=== PATIENT | male | born 1955 | race Hispanic/Latino ===

== ENCOUNTER → 2019-06-17 | Day surgery (SDC) | payer OTHER ==
[2019-06-15 12:30] LABS: BASOPHILS % 0.4 % (0.0-1.0); EOSINOPHILS % 0.4 % (0.0-6.0); HEMATOCRIT 38.8 % (38.2-49.6); HEMOGLOBIN 13.3 g/dL (14.0-18.0); LYMPHOCYTES # (AUTO) 1.3 (1.0-3.2); LYMPHOCYTES % 16.9 % (18.0-39.1); MEAN CORPUSCULAR HEMOGLOBIN 30.2 pg (28-32); MEAN CORPUSCULAR HGB CONC 34.3 g/dL (31-35); MEAN CORPUSCULAR VOLUME 88.2 fL (81-99); MONOCYTES # (AUTO) 0.5 (0.2-0.8); MONOCYTES % 6.6 % (4.4-11.3); NEUTROPHILS # (AUTO) 5.5 (2.1-6.9); NEUTROPHILS % 75.2 % (38.7-80.0); PLATELET COUNT 209 x10e3/uL (140-360); RED CELL DISTRIBUTION WIDTH 12.8 % (11.7-14.4)
[2019-06-15 12:49] LABS: ALANINE AMINOTRANSFERASE 17 IU/L (0-55); ALBUMIN 4.2 g/dL (3.5-5.0); ALBUMIN/GLOBULIN RATIO 1.4 (0.8-2.0); ALKALINE PHOSPHATASE 94 IU/L (40-150); ANION GAP 14.3 mmol/L (8-16); BLOOD UREA NITROGEN 11 mg/dL (7-26); BUN/CREATININE RATIO 14 (6-25); CALCIUM 9.5 mg/dL (8.4-10.2); CARBON DIOXIDE 26 mmol/L (22-29); CHLORIDE 98 mmol/L (98-107); CREATININE, SERUM 0.79 mg/dL (0.72-1.25); EST GLOMERULAR FILTRATION RATE > 60 ML/MIN (60-); GLUCOSE 147 mg/dL (74-118); POTASSIUM 4.3 mmol/L (3.5-5.1); SODIUM 134 mmol/L (136-145)
[~2019-06-17] MED LIST: ATORVASTATIN CA20 MG PO; BUPIVACAINE 0.25%/EPI 30ML SDV INJ ONE; DEXAMETHASONE SOD PHOS INJ 4 MG/ML VIAL ONE; FENTANYL CITRATE/PF 100MCG/2 ML INJ ONE; KETOROLAC TROMETHAMINE 30 MG/ML VIAL ONE; LIDOCAINE HCL 1% LOCAL INJ 20 ML VIAL ONE; LIDOCAINE HCL 2% LOCAL INJ 5 ML SDV VIAL INJ ONE; METFORMIN HCL500 MG PO; MIDAZOLAM HCL 2 MG/2 ML VIAL ONE; ONDANSETRON HCL INJ 2MG/ML 2ML 2 MG/ML VIAL ONE; PROPOFOL IV EMULSION 10 MG/ML 20 ML VIAL ONE; SEVOFLURANE INHAL SOLN 250 ML PEN BTL ONE
[2019-06-17 12:10] VITALS: BP 131/80
--- NOTE | 2019-06-17 13:26 | Operative Report ---
DATE OF PROCEDURE: 06/17/2019 SURGEON: Jeffrey Manjarrez MD PREOPERATIVE DIAGNOSIS: Left inguinal hernia. POSTOPERATIVE DIAGNOSIS: Left inguinal hernia. OPERATION PERFORMED: Repair of left inguinal hernia with extended Prolene hernia system. ANESTHESIA: General. COMPLICATIONS: None. ESTIMATED BLOOD LOSS: Minimal. DESCRIPTION OF PROCEDURE: With the patient lying in bed in the supine position, under good general anesthesia, the abdomen was prepped with Betadine solution and draped in the usual manner. A left inguinal incision was made, it was carried down through the subcutaneous tissue down to the external oblique aponeurosis. External oblique was then opened along the length of its fibers and the external inguinal ring was opened. The cord was then mobilized and retracted. Contained within the cord was a small lipoma of the cord, which was from the cord structures ligated with 2-0 Vicryl and divided. Also, contained within the cord was a large indirect hernia sac, which contained some omentum. The omentum was reduced back to the intraabdominal cavity and the sac was then from all of the cord structures and high ligation was achieved with a pursestring suture of 2-0 silk and a 2-0 silk tie. The excess was resected. After this was done, the preperitoneal space was entered right through the internal ring and a pocket was created without any difficulty. An extended Prolene hernia system was placed in the preperitoneal space and the underlay patch was deployed without any problems. The overlay patch was then placed over the floor and split inferolaterally to allow for passage of the cord. The mesh was then sutured to the conjoined tendon and the inguinal ligament using interrupted sutures of 0 Vicryl. The whole area was thoroughly irrigated. Perfect hemostasis was ascertained. All layers were infiltrated on the way out with solution of 0.25% Marcaine and 1% lidocaine mixed in equal parts. The external oblique aponeurosis was closed with a running suture of 2-0 Vicryl. The subcutaneous tissue was approximated with 3-0 plain and the skin was closed with clips. A dressing was applied. The sponge, lap, and needle counts were correct. The patient tolerated the procedure well and returned to the recovery room in stable condition. Jeffrey Manjarrez MD JLR/NAKIA Monroe: 06/17/2019 11:22:35 /[id number]
== END | disposition home or self-care (01) ==
LOC: OR 05:51
PROVIDERS: ATTEND Surgery
DX: K40.90 Unilateral inguinal hernia, without obstruction or gangrene, not specified as recurrent (principal); D17.6 Benign lipomatous neoplasm of spermatic cord; E11.9 Type 2 diabetes mellitus without complications; I10 Essential (primary) hypertension; Z01.810 Encounter for preprocedural cardiovascular examination; Z01.812 Encounter for preprocedural laboratory examination; Z79.84 Long term (current) use of oral hypoglycemic drugs
CPT/HCPCS: 36415 ×2; 49505; 80053; 82948; 85025; 93005; C1781; J1100; J1885; J2001 ×2; J2250; J2405; J2704; J3010

== ENCOUNTER → 2021-10-03 | Outpatient (CLI) | payer MEDICARE, OTHER ==
[~2021-10-03] MED LIST changes: -BUPIVACAINE 0.25%/EPI 30ML SDV INJ ONE; -DEXAMETHASONE SOD PHOS INJ 4 MG/ML VIAL ONE; +DIATRIZOATE MEGL/DIATRIZOA SOD 30 ML BTL PO ONE; -FENTANYL CITRATE/PF 100MCG/2 ML INJ ONE; +IOPAMIDOL 370 MG/ML 200 ML INFUS..BTL INJ ONE; -KETOROLAC TROMETHAMINE 30 MG/ML VIAL ONE; -LIDOCAINE HCL 1% LOCAL INJ 20 ML VIAL ONE; -LIDOCAINE HCL 2% LOCAL INJ 5 ML SDV VIAL INJ ONE; -MIDAZOLAM HCL 2 MG/2 ML VIAL ONE; -ONDANSETRON HCL INJ 2MG/ML 2ML 2 MG/ML VIAL ONE; -PROPOFOL IV EMULSION 10 MG/ML 20 ML VIAL ONE; -SEVOFLURANE INHAL SOLN 250 ML PEN BTL ONE; +SODIUM CHLORIDE 0.9% 50ML 50 ML ONE
[2021-10-03 08:09] LABS: BASOPHILS % 0.2 % (0.0-1.0); EOSINOPHILS % 0.1 % (0.0-6.0); HEMATOCRIT 27.8 % (38.2-49.6); HEMOGLOBIN 8.4 g/dL (14.0-18.0); LYMPHOCYTES # (AUTO) 0.9 (1.0-3.2); LYMPHOCYTES % 7.6 % (18.0-39.1); MEAN CORPUSCULAR HEMOGLOBIN 23.2 pg (28-32); MEAN CORPUSCULAR HGB CONC 30.2 g/dL (31-35); MEAN CORPUSCULAR VOLUME 76.8 fL (81-99); MONOCYTES % 8.7 % (4.4-11.3); NEUTROPHILS # (AUTO) 9.5 (2.1-6.9); NEUTROPHILS % 82.9 % (38.7-80.0); PLATELET COUNT 470 x10e3/uL (140-360); RED BLOOD COUNT 3.62 x10e6/uL (4.3-5.7); RED CELL DISTRIBUTION WIDTH 14.7 % (11.7-14.4)
[2021-10-03 08:55] LABS: ALBUMIN 2.5 g/dL (3.5-5.0); ALBUMIN/GLOBULIN RATIO 0.5 (0.8-2.0); ANION GAP 16.1 mmol/L (8-16); CALCIUM 9.6 mg/dL (8.4-10.2); CREATININE, SERUM 0.75 mg/dL (0.72-1.25); POTASSIUM 4.1 mmol/L (3.5-5.1)
== END ==
LOC: CT 07:25
PROVIDERS: ATTEND Surgery
DX: R10.32 Left lower quadrant pain (principal); D64.9 Anemia, unspecified; R63.4 Abnormal weight loss
CPT/HCPCS: 36415; 71046; 74177; 80053; 85025; Q9967

== ENCOUNTER 2021-12-15 12:21 | Inpatient (IN) | payer MEDICARE, OTHER ==
[~2021-12-15] VITALS: Ht 157.5 cm; Wt 69.5 kg
[~2021-12-15 12:21] MED LIST changes: -DIATRIZOATE MEGL/DIATRIZOA SOD 30 ML BTL PO ONE; -IOPAMIDOL 370 MG/ML 200 ML INFUS..BTL INJ ONE; -SODIUM CHLORIDE 0.9% 50ML 50 ML ONE
[2021-12-15] MEDS ORDERED: DEXTROSE 50% SYRINGE 50 ML IV ONE ×2 (12:43→12:45)
[2021-12-15 13:16] LABS: HEMATOCRIT 23.8 % (38.2-49.6); HEMOGLOBIN 7.4 g/dL (14.0-18.0); LYMPHOCYTES # (AUTO) 0.5 (1.0-3.2); LYMPHOCYTES % 6.3 % (18.0-39.1); MEAN CORPUSCULAR HEMOGLOBIN 27.3 pg (28-32); MEAN CORPUSCULAR HGB CONC 31.1 g/dL (31-35); MEAN CORPUSCULAR VOLUME 87.8 fL (81-99); MONOCYTES # (AUTO) 0.1 (0.2-0.8); MONOCYTES % 1.8 % (4.4-11.3); NEUTROPHILS # (AUTO) 7.2 (2.1-6.9); NEUTROPHILS % 91.1 % (38.7-80.0); RED BLOOD COUNT 2.71 x10e6/uL (4.3-5.7); RED CELL DISTRIBUTION WIDTH 25.1 % (11.7-14.4)
[2021-12-15 13:21] LABS: PLATELET COUNT 6 x10e3/uL (140-360)
[2021-12-15 13:32] LABS: ALBUMIN 1.5 g/dL (3.5-5.0); ALBUMIN/GLOBULIN RATIO 0.4 (0.8-2.0); ANION GAP 9.3 mmol/L (8-16); CALCIUM 7.2 mg/dL (8.4-10.2); CREATININE, SERUM 0.86 mg/dL (0.72-1.25); POTASSIUM 4.3 mmol/L (3.5-5.1)
[2021-12-15] MEDS ORDERED: ONDANSETRON HCL INJ 2MG/ML 2ML 2 MG/ML VIAL IV PRN (14:30)
[2021-12-15] MEDS ORDERED: SODIUM CHLORIDE 0.9% 250ML 250 ML ONE (17:55)
[2021-12-15 18:01] VITALS: BP 127/78
[2021-12-15] MEDS ORDERED: ZINC-22050 MG PO (18:17)
[2021-12-15] MEDS ORDERED: LEVOTHYROXINE50 MCG PO (18:17)
[2021-12-15] MEDS ORDERED: LASIX20 MG PO (18:17)
[2021-12-15] MEDS ORDERED: POTASSIUM CHLO10 ME1 PO (18:17)
[2021-12-15] MEDS ORDERED: SODIUM CHLORIDE1 GM PO (18:17)
[2021-12-15] MEDS ORDERED: ZESTRIL40 MG PO (18:17)
[2021-12-15] MEDS ORDERED: ACTOS15 MG PO (18:17)
[2021-12-15 18:32] VITALS: BP 106/80
[2021-12-15 19:00] VITALS: BP 110/73
[2021-12-15 20:00] VITALS: BP 118/82
[2021-12-15] MEDS: DEXTROSE 50% SYRINGE 50 ML IV PRN (20:16)
[2021-12-15 21:00] VITALS: BP 141/92
[2021-12-15 21:30] VITALS: BP 144/79
[2021-12-15] MEDS ORDERED: DEXAMETHASONE PHOS 4MG/ML 5ML MULTIDOSE VIAL IV ONE (23:45)
[2021-12-16] VITALS (38 sets, daily range): BP systolic 90–142; BP diastolic 70–88
[2021-12-16] MEDS ORDERED: DEXAMETHASONE SOD PHOS 10 MG/1 ML VIAL ONE (00:13)
[2021-12-16] MEDS: DEXTROSE 50% SYRINGE 50 ML IV PRN (00:48)
[2021-12-16 08:14] LABS: ANION GAP 11.6 mmol/L (8-16); CREATININE, SERUM 0.77 mg/dL (0.72-1.25); POTASSIUM 4.6 mmol/L (3.5-5.1)
[2021-12-16 08:25] LABS: CALCIUM 6.5 mg/dL (8.4-10.2)
[2021-12-16 10:40] LABS: HEMATOCRIT 23.8 % (38.2-49.6); HEMOGLOBIN 7.5 g/dL (14.0-18.0); LYMPHOCYTES # (AUTO) 0.3 (1.0-3.2); LYMPHOCYTES % 4.7 % (18.0-39.1); MEAN CORPUSCULAR HGB CONC 31.5 g/dL (31-35); MEAN CORPUSCULAR VOLUME 88.8 fL (81-99); MONOCYTES # (AUTO) 0.1 (0.2-0.8); MONOCYTES % 1.5 % (4.4-11.3); NEUTROPHILS # (AUTO) 5.1 (2.1-6.9); NEUTROPHILS % 92.5 % (38.7-80.0); RED BLOOD COUNT 2.68 x10e6/uL (4.3-5.7)
[2021-12-16 10:51] LABS: PLATELET COUNT 6 x10e3/uL (140-360)
[2021-12-16 10:53] LABS: INR 2.29; PROTHROMBIN TIME 26.9 seconds (11.9-14.5)
[2021-12-16 10:54] LABS: PARTIAL THROMBOPLASTIN TIME 47.4 seconds (23.8-35.5)
[2021-12-16 11:05] LABS: ANION GAP 13.5 mmol/L (8-16); CREATININE, SERUM 0.75 mg/dL (0.72-1.25); POTASSIUM 4.5 mmol/L (3.5-5.1)
[2021-12-16 11:06] LABS: CHOL/HDL RATIO 2.6 (3.9-4.7)
[2021-12-16 11:10] LABS: CALCIUM 6.8 mg/dL (8.4-10.2)
[2021-12-16 11:12] LABS: ANISOCYTOSIS SLIGHT; PLATELET ESTIMATE MARKEDLY DECREASED; PLATELET MORPHOLOGY COMMENT NORMAL; POIKILOCYTOSIS SLIGHT; RBC MORPHOLOGY COMMENT NORMAL
[2021-12-16 11:41] LABS: ALBUMIN 1.6 g/dL (3.5-5.0); ALBUMIN/GLOBULIN RATIO 0.5 (0.8-2.0); ANION GAP 13.9 mmol/L (8-16); CREATININE, SERUM 0.75 mg/dL (0.72-1.25); POTASSIUM 4.9 mmol/L (3.5-5.1)
[2021-12-16 11:52] LABS: IRON 85 ug/dL (65-175); LACTATE DEHYDROGENASE 659 IU/L (125-220); TRANSFERRIN < 70 mg/dL (174-364)
[2021-12-16 11:58] LABS: CALCIUM 6.7 mg/dL (8.4-10.2)
[2021-12-16] MEDS: LISINOPRIL 20 MG TAB PO SCH (12:23)
[2021-12-16] MEDS ORDERED: SODIUM CHLORIDE 0.9% 500ML 500 ML ONE (12:31)
[2021-12-16] MEDS: FUROSEMIDE INJ 10 MG/ML 2 ML VIAL IV SCH ×2 (12:40→17:33)
[2021-12-16 12:48] LABS: FERRITIN 4145.01 ng/mL (21.81-274.66)
[2021-12-16] MEDS: SODIUM CHLORIDE 1 GM TAB PO SCH (17:33)
[2021-12-16 17:41] LABS: CLARITY,URINE SL CLOUDY (CLEAR); COLOR,URINE YELLOW (YELLOW); KETONES,URINE NEGATIVE (NEGATIVE); LEUKOCYTE ESTERASE ,URINE TRACE (NEGATIVE); NITRITE,URINE NEGATIVE (NEGATIVE); PROTEIN,URINE DIPSTICK TRACE (NEGATIVE); URINE UROBILINOGEN 0.2 mg/dL (0.2 - 1)
[2021-12-16 17:55] LABS: RBC,URINE 0-5 /HPF (0-5); WBC,URINE (MAN) 0-5 /HPF (0-5)
[2021-12-16 17:56] LABS: BACTERIA,URINE MODERATE /HPF; EPITHELIAL CELLS,URINE FEW /LPF
[2021-12-16 20:29] LABS: LYMPHOCYTES # (AUTO) 0.4 (1.0-3.2); LYMPHOCYTES % 5.6 % (18.0-39.1); MEAN CORPUSCULAR HGB CONC 31.3 g/dL (31-35); MEAN CORPUSCULAR VOLUME 89.3 fL (81-99); MONOCYTES # (AUTO) 0.2 (0.2-0.8); NEUTROPHILS # (AUTO) 6.8 (2.1-6.9); NEUTROPHILS % 91.1 % (38.7-80.0); RED BLOOD COUNT 2.25 x10e6/uL (4.3-5.7); RED CELL DISTRIBUTION WIDTH 25.2 % (11.7-14.4)
[2021-12-16 20:32] LABS: HEMATOCRIT 20.1 % (38.2-49.6); HEMOGLOBIN 6.3 g/dL (14.0-18.0)
[2021-12-16 20:33] LABS: PLATELET COUNT 10 x10e3/uL (140-360)
[2021-12-16] MEDS ORDERED: SODIUM CHLORIDE 0.9% 250ML 250 ML IV ONE (21:00)
[2021-12-16] MEDS ORDERED: SODIUM CHLORIDE 0.9% 250ML 250 ML ONE (22:21)
[2021-12-17] VITALS (38 sets, daily range): BP systolic 87–127; BP diastolic 63–87
[2021-12-17] MEDS ORDERED: SODIUM CHLORIDE 0.9% IV NR ×2
[2021-12-17] MEDS ORDERED: DEXAMETHASONE PHOS 4MG/ML 5ML MULTIDOSE VIAL IV ONE
[2021-12-17] MEDS ORDERED: DEXAMETHASONE PHOS IV NR ×2
[2021-12-17 05:33] LABS: BASOPHILS % 0.1 % (0.0-1.0); HEMATOCRIT 27.2 % (38.2-49.6); HEMOGLOBIN 8.9 g/dL (14.0-18.0); LYMPHOCYTES # (AUTO) 0.3 (1.0-3.2); LYMPHOCYTES % 3.9 % (18.0-39.1); MEAN CORPUSCULAR HEMOGLOBIN 28.8 pg (28-32); MEAN CORPUSCULAR HGB CONC 32.7 g/dL (31-35); MONOCYTES # (AUTO) 0.2 (0.2-0.8); MONOCYTES % 2.4 % (4.4-11.3); NEUTROPHILS # (AUTO) 6.1 (2.1-6.9); NEUTROPHILS % 90.5 % (38.7-80.0); RED BLOOD COUNT 3.09 x10e6/uL (4.3-5.7)
[2021-12-17 05:37] LABS: PLATELET COUNT 17 x10e3/uL (140-360)
[2021-12-17 05:50] LABS: ALBUMIN 1.4 g/dL (3.5-5.0); ALBUMIN/GLOBULIN RATIO 0.5 (0.8-2.0); ANION GAP 11.6 mmol/L (8-16); CREATININE, SERUM 0.78 mg/dL (0.72-1.25); POTASSIUM 4.6 mmol/L (3.5-5.1)
[2021-12-17 05:51] LABS: CALCIUM 6.8 mg/dL (8.4-10.2)
[2021-12-17] MEDS: LEVOTHYROXINE SODIUM 50 MCG TAB PO SCH (06:17)
[2021-12-17 07:07] LABS: BAND NEUTROPHILS % (MANUAL) 1 %; LYMPHOCYTES % (MANUAL) 4 % (19-48); METAMYELOCYTES % (MANUAL) 1 % (0-0); MONOCYTES % (MANUAL) 4 % (3.4-9.0); NEUTROPHILS % (MANUAL) 90 % (40-74)
[2021-12-17 07:08] LABS: ANISOCYTOSIS 2+
[2021-12-17 07:09] LABS: BURR CELLS 2+; OVALOCYTES 1+; POLYCHROMASIA MODERATE; SCHISTOCYTES 1+; TARGET CELLS OCC
[2021-12-17 07:10] LABS: PLATELET ESTIMATE MARKEDLY DECREASED; PLATELET MORPHOLOGY COMMENT NORMAL; RBC MORPHOLOGY COMMENT ABNORMAL
[2021-12-17] MEDS: FUROSEMIDE INJ 10 MG/ML 2 ML VIAL IV SCH ×4 (09:00→18:35)
[2021-12-17] MEDS ORDERED: FUROSEMIDE 20 MG TAB PO SCH (09:00)
[2021-12-17] MEDS: CEFTRIAXONE 1 GM in SODIUM CHLORIDE 0.9% 50ML 50 ML IV SCH (10:33)
[2021-12-17] MEDS: SODIUM CHLORIDE 1 GM TAB PO SCH ×2 (10:35→17:30)
[2021-12-17] MEDS ORDERED: SODIUM CHLORIDE 0.9% 50ML 50 ML ONE (10:54)
[2021-12-17] MEDS ORDERED: SODIUM CHLORIDE 0.9% 250ML 500 ML ONE (12:51)
[2021-12-17] MEDS: LISINOPRIL 20 MG TAB PO SCH (16:04)
[2021-12-17 17:32] LABS: INR 2.21; PROTHROMBIN TIME 26.2 seconds (11.9-14.5)
[2021-12-18] VITALS (20 sets, daily range): BP systolic 75–110; BP diastolic 57–87
[2021-12-18] MEDS ORDERED: DEXAMETHASONE PHOS 4MG/ML 5ML MULTIDOSE VIAL IV ONE
[2021-12-18] MEDS ORDERED: SODIUM CHLORIDE 0.9% IV ONE ×2
[2021-12-18] MEDS ORDERED: DEXAMETHASONE PHOS IV ONE ×2
[2021-12-18] MEDS: FUROSEMIDE INJ 10 MG/ML 2 ML VIAL IV SCH ×4 (05:30→22:03)
[2021-12-18 05:54] LABS: BASOPHILS % 0.3 % (0.0-1.0); HEMATOCRIT 26.3 % (38.2-49.6); HEMOGLOBIN 8.7 g/dL (14.0-18.0); LYMPHOCYTES # (AUTO) 0.2 (1.0-3.2); MEAN CORPUSCULAR HGB CONC 33.1 g/dL (31-35); MEAN CORPUSCULAR VOLUME 87.7 fL (81-99); MONOCYTES # (AUTO) 0.2 (0.2-0.8); MONOCYTES % 1.5 % (4.4-11.3); NEUTROPHILS # (AUTO) 10.4 (2.1-6.9); NEUTROPHILS % 94.8 % (38.7-80.0); RED CELL DISTRIBUTION WIDTH 22.8 % (11.7-14.4)
[2021-12-18 05:56] LABS: PLATELET COUNT 6 x10e3/uL (140-360)
[2021-12-18 06:19] LABS: ALBUMIN 1.4 g/dL (3.5-5.0); ALBUMIN/GLOBULIN RATIO 0.5 (0.8-2.0); ANION GAP 9.3 mmol/L (8-16); CALCIUM 7.3 mg/dL (8.4-10.2); CREATININE, SERUM 0.81 mg/dL (0.72-1.25); POTASSIUM 4.3 mmol/L (3.5-5.1)
[2021-12-18] MEDS: LEVOTHYROXINE SODIUM 50 MCG TAB PO SCH (06:27)
[2021-12-18 09:00] LABS: INR 2.03; PROTHROMBIN TIME 24.5 seconds (11.9-14.5)
[2021-12-18] MEDS ORDERED: PHYTONADIONE 10 MG/ML AMP SQ ONE (09:00)
[2021-12-18 09:01] LABS: PARTIAL THROMBOPLASTIN TIME 42.2 seconds (23.8-35.5)
[2021-12-18] MEDS: CEFTRIAXONE 1 GM in SODIUM CHLORIDE 0.9% 50ML 50 ML IV SCH (11:14)
[2021-12-18 12:10] LABS: LYMPHOCYTES % (MANUAL) 4 % (19-48); METAMYELOCYTES % (MANUAL) 2 % (0-0); MONOCYTES % (MANUAL) 2 % (3.4-9.0); NEUTROPHILS % (MANUAL) 92 % (40-74)
[2021-12-18 12:11] LABS: BURR CELLS MODERATE; OVALOCYTES FEW; PLATELET ESTIMATE MARKEDLY DECREASED; PLATELET MORPHOLOGY COMMENT NORMAL; RBC MORPHOLOGY COMMENT ABNORMAL; SCHISTOCYTES RARE
[2021-12-18] MEDS: SODIUM CHLORIDE 1 GM TAB PO SCH ×2 (12:14→19:14)
[2021-12-18] MEDS: IMMUNE GLOBULIN IV SCH (15:03)
[2021-12-19] VITALS (20 sets, daily range): BP systolic 82–112; BP diastolic 58–82
[2021-12-19] MEDS ORDERED: DEXAMETHASONE PHOS 4MG/ML 5ML MULTIDOSE VIAL IV ONE
[2021-12-19] MEDS ORDERED: DEXAMETHASONE PHOS IV ONE ×2
[2021-12-19] MEDS ORDERED: SODIUM CHLORIDE 0.9% IV ONE ×2
[2021-12-19] MEDS: FUROSEMIDE INJ 10 MG/ML 2 ML VIAL IV SCH ×3 (05:10→21:16)
[2021-12-19] MEDS: LEVOTHYROXINE SODIUM 50 MCG TAB PO SCH (05:11)
[2021-12-19 06:10] LABS: BASOPHILS % 0.2 % (0.0-1.0); HEMATOCRIT 23.9 % (38.2-49.6); HEMOGLOBIN 7.9 g/dL (14.0-18.0); LYMPHOCYTES # (AUTO) 0.2 (1.0-3.2); LYMPHOCYTES % 1.7 % (18.0-39.1); MEAN CORPUSCULAR HEMOGLOBIN 29.2 pg (28-32); MEAN CORPUSCULAR HGB CONC 33.1 g/dL (31-35); MEAN CORPUSCULAR VOLUME 88.2 fL (81-99); MONOCYTES # (AUTO) 0.1 (0.2-0.8); MONOCYTES % 1.3 % (4.4-11.3); NEUTROPHILS # (AUTO) 9.3 (2.1-6.9); NEUTROPHILS % 95.1 % (38.7-80.0); RED BLOOD COUNT 2.71 x10e6/uL (4.3-5.7); RED CELL DISTRIBUTION WIDTH 23.2 % (11.7-14.4)
[2021-12-19 06:11] LABS: PLATELET COUNT 7 x10e3/uL (140-360)
[2021-12-19 06:25] LABS: INR 1.96; PARTIAL THROMBOPLASTIN TIME 45.2 seconds (23.8-35.5); PROTHROMBIN TIME 23.9 seconds (11.9-14.5)
[2021-12-19 06:35] LABS: ANION GAP 10.2 mmol/L (8-16); CREATININE, SERUM 0.9 mg/dL (0.72-1.25); POTASSIUM 4.2 mmol/L (3.5-5.1)
[2021-12-19] MEDS: SODIUM CHLORIDE 1 GM TAB PO SCH ×2 (08:42→17:06)
[2021-12-19] MEDS: CEFTRIAXONE 1 GM in SODIUM CHLORIDE 0.9% 50ML 50 ML IV SCH (08:42)
[2021-12-19 08:57] LABS: BAND NEUTROPHILS % (MANUAL) 1 %; METAMYELOCYTES % (MANUAL) 1 % (0-0); MONOCYTES % (MANUAL) 2 % (3.4-9.0); NEUTROPHILS % (MANUAL) 96 % (40-74)
[2021-12-19 08:58] LABS: ANISOCYTOSIS MODERATE; PLATELET ESTIMATE MARKEDLY DECREASED; PLATELET MORPHOLOGY COMMENT NORMAL; RBC MORPHOLOGY COMMENT ABNORMAL
[2021-12-19 08:59] LABS: BURR CELLS MODERATE; ELLIPTOCYTE, RBC SLIGHT; OVALOCYTES FEW; SCHISTOCYTES RARE
[2021-12-19 13:15] LABS: BILIRUBIN,DIRECT 0.7 mg/dL (0.0-0.5)
[2021-12-19] MEDS: IMMUNE GLOBULIN IV SCH (14:00)
[2021-12-19] MEDS ORDERED: SODIUM CHLORIDE 0.9% 250ML 0 ML ONE (14:50)
[2021-12-19] MEDS ORDERED: DEXTROSE 50% SYRINGE 50 ML IV PRN (18:00)
[2021-12-19] MEDS: INSULIN REGULAR, HUMAN 100 UNIT/1 ML SQ SCH (20:27)
[2021-12-20] VITALS (13 sets, daily range): BP systolic 91–124; BP diastolic 58–77
[2021-12-20] MEDS: FUROSEMIDE INJ 10 MG/ML 2 ML VIAL IV SCH ×3 (06:00→21:35)
[2021-12-20] MEDS: LEVOTHYROXINE SODIUM 50 MCG TAB PO SCH (06:42)
[2021-12-20] MEDS: INSULIN REGULAR, HUMAN 100 UNIT/1 ML SQ SCH ×4 (07:55→20:46)
[2021-12-20] MEDS: SODIUM CHLORIDE 1 GM TAB PO SCH ×2 (08:26→17:20)
[2021-12-20] MEDS: CEFTRIAXONE 1 GM in SODIUM CHLORIDE 0.9% 50ML 50 ML IV SCH (08:26)
[2021-12-20 14:01] LABS: BASOPHILS % 0.1 % (0.0-1.0); HEMATOCRIT 22.3 % (38.2-49.6); HEMOGLOBIN 7.2 g/dL (14.0-18.0); LYMPHOCYTES # (AUTO) 0.4 (1.0-3.2); LYMPHOCYTES % 4.6 % (18.0-39.1); MEAN CORPUSCULAR HEMOGLOBIN 28.5 pg (28-32); MEAN CORPUSCULAR HGB CONC 32.3 g/dL (31-35); MEAN CORPUSCULAR VOLUME 88.1 fL (81-99); MONOCYTES # (AUTO) 0.2 (0.2-0.8); MONOCYTES % 1.9 % (4.4-11.3); NEUTROPHILS # (AUTO) 8.6 (2.1-6.9); NEUTROPHILS % 92.5 % (38.7-80.0); RED BLOOD COUNT 2.53 x10e6/uL (4.3-5.7); RED CELL DISTRIBUTION WIDTH 23.5 % (11.7-14.4)
[2021-12-20 14:06] LABS: PLATELET COUNT 5 x10e3/uL (140-360)
[2021-12-20 14:22] LABS: ALBUMIN 1.2 g/dL (3.5-5.0); ALBUMIN/GLOBULIN RATIO 0.3 (0.8-2.0); ANION GAP 10.2 mmol/L (8-16); CREATININE, SERUM 0.82 mg/dL (0.72-1.25); POTASSIUM 4.2 mmol/L (3.5-5.1)
[2021-12-20] MEDS: IMMUNE GLOBULIN IV SCH (15:23)
[2021-12-20] MEDS: PREDNISONE 20 MG TAB PO SCH (15:23)
[2021-12-20] MEDS ORDERED: METHYLPREDNISOLONE SOD SUCC 1,000 MG/8 ML VIAL IV ONE (16:00)
[2021-12-20] MEDS ORDERED: METHYLPREDNISOLONE SOD SUCC 1,000 MG in SODIUM CHLORIDE 0.9% 250ML 250 ML IV ONE (16:30)
[2021-12-20] MEDS: OMEPRAZOLE 20 MG CAP PO SCH (17:20)
[2021-12-20] MEDS ORDERED: IOPAMIDOL 370 MG/ML 200 ML INFUS..BTL INJ ONE (18:22)
[2021-12-20] MEDS ORDERED: SODIUM CHLORIDE 0.9% 50ML 50 ML ONE (18:22)
[2021-12-20] MEDS ORDERED: SODIUM CHLORIDE 0.9% 1000ML 1,000 ML ONE (19:44)
[2021-12-21] VITALS (26 sets, daily range): BP systolic 82–116; BP diastolic 57–77
[2021-12-21] MEDS: FUROSEMIDE INJ 10 MG/ML 2 ML VIAL IV SCH ×3 (05:52→21:28)
[2021-12-21] MEDS: LEVOTHYROXINE SODIUM 50 MCG TAB PO SCH (05:52)
[2021-12-21] MEDS: INSULIN REGULAR, HUMAN 100 UNIT/1 ML SQ SCH ×4 (07:30→20:59)
[2021-12-21 07:45] LABS: HEMATOCRIT 23.3 % (38.2-49.6); HEMOGLOBIN 7.6 g/dL (14.0-18.0); LYMPHOCYTES # (AUTO) 0.2 (1.0-3.2); LYMPHOCYTES % 3.7 % (18.0-39.1); MEAN CORPUSCULAR HEMOGLOBIN 28.9 pg (28-32); MEAN CORPUSCULAR HGB CONC 32.6 g/dL (31-35); MEAN CORPUSCULAR VOLUME 88.6 fL (81-99); MONOCYTES # (AUTO) 0.1 (0.2-0.8); NEUTROPHILS # (AUTO) 6.1 (2.1-6.9); NEUTROPHILS % 93.4 % (38.7-80.0); RED BLOOD COUNT 2.63 x10e6/uL (4.3-5.7); RED CELL DISTRIBUTION WIDTH 23.8 % (11.7-14.4)
[2021-12-21 07:49] LABS: PLATELET COUNT 5 x10e3/uL (140-360)
[2021-12-21 08:02] LABS: ANION GAP 6.9 mmol/L (8-16); CALCIUM 7.2 mg/dL (8.4-10.2); CREATININE, SERUM 0.75 mg/dL (0.72-1.25); POTASSIUM 3.9 mmol/L (3.5-5.1)
[2021-12-21 08:16] LABS: LYMPHOCYTES % (MANUAL) 1 % (19-48); MONOCYTES % (MANUAL) 1 % (3.4-9.0); NEUTROPHILS % (MANUAL) 98 % (40-74)
[2021-12-21 08:17] LABS: ANISOCYTOSIS MODERATE; HYPOCHROMASIA MODERATE; MICROCYTOSIS MODERATE; OVALOCYTES FEW; PLATELET ESTIMATE MARKEDLY DECREASED; PLATELET MORPHOLOGY COMMENT NORMAL; RBC MORPHOLOGY COMMENT ABNORMAL
[2021-12-21 08:18] LABS: BURR CELLS SLIGHT; SCHISTOCYTES RARE
[2021-12-21] MEDS: OMEPRAZOLE 20 MG CAP PO SCH ×2 (08:20→16:07)
[2021-12-21] MEDS: CEFTRIAXONE 1 GM in SODIUM CHLORIDE 0.9% 50ML 50 ML IV SCH (08:20)
[2021-12-21] MEDS: PREDNISONE 20 MG TAB PO SCH (08:20)
[2021-12-21] MEDS: SODIUM CHLORIDE 1 GM TAB PO SCH ×2 (08:21→16:07)
[2021-12-21] MEDS ORDERED: METHYLPREDNISOLONE SOD SUCC 1,000 MG/8 ML VIAL IV ONE (12:15)
[2021-12-21] MEDS ORDERED: METHYLPREDNISOLONE SOD SUCC 1,000 MG in SODIUM CHLORIDE 0.9% 100 ML IV ONE (13:30)
[2021-12-21] MEDS: IMMUNE GLOBULIN IV SCH (13:31)
[2021-12-21 13:38] LABS: CLARITY,URINE CLOUDY (CLEAR); COLOR,URINE RED (YELLOW); KETONES,URINE NEGATIVE (NEGATIVE); LEUKOCYTE ESTERASE ,URINE SMALL (NEGATIVE); NITRITE,URINE NEGATIVE (NEGATIVE); PROTEIN,URINE DIPSTICK 1+ (NEGATIVE); URINE UROBILINOGEN 0.2 mg/dL (0.2 - 1)
[2021-12-21 13:39] LABS: BACTERIA,URINE RARE /HPF; RBC,URINE >50 /HPF (0-5)
[2021-12-21 13:43] LABS: PROTHROMBIN TIME 24.2 seconds (11.9-14.5)
[2021-12-21] MEDS ORDERED: PROMACTA 50 MG PO SCH (18:00)
[2021-12-22] VITALS (30 sets, daily range): BP systolic 84–104; BP diastolic 61–75
[2021-12-22] MEDS: FUROSEMIDE INJ 10 MG/ML 2 ML VIAL IV SCH ×3 (06:00→22:08)
[2021-12-22] MEDS: LEVOTHYROXINE SODIUM 50 MCG TAB PO SCH (06:00)
[2021-12-22 06:40] LABS: BASOPHILS % 0.1 % (0.0-1.0); HEMATOCRIT 21.3 % (38.2-49.6); LYMPHOCYTES # (AUTO) 0.2 (1.0-3.2); LYMPHOCYTES % 2.9 % (18.0-39.1); MEAN CORPUSCULAR HEMOGLOBIN 28.8 pg (28-32); MEAN CORPUSCULAR HGB CONC 31.9 g/dL (31-35); MEAN CORPUSCULAR VOLUME 90.3 fL (81-99); MONOCYTES # (AUTO) 0.2 (0.2-0.8); MONOCYTES % 2.2 % (4.4-11.3); NEUTROPHILS # (AUTO) 7.6 (2.1-6.9); NEUTROPHILS % 94.3 % (38.7-80.0); RED BLOOD COUNT 2.36 x10e6/uL (4.3-5.7); RED CELL DISTRIBUTION WIDTH 23.9 % (11.7-14.4)
[2021-12-22 06:58] LABS: HEMOGLOBIN 6.8 g/dL (14.0-18.0)
[2021-12-22 06:59] LABS: PLATELET COUNT 7 x10e3/uL (140-360)
[2021-12-22 07:13] LABS: ALBUMIN 1.1 g/dL (3.5-5.0); ALBUMIN/GLOBULIN RATIO 0.2 (0.8-2.0); CALCIUM 7.1 mg/dL (8.4-10.2); CREATININE, SERUM 0.77 mg/dL (0.72-1.25)
[2021-12-22 07:14] LABS: BILIRUBIN,DIRECT 0.8 mg/dL (0.0-0.5)
[2021-12-22] MEDS: SODIUM CHLORIDE 1 GM TAB PO SCH ×2 (09:00→17:00)
[2021-12-22] MEDS: OMEPRAZOLE 20 MG CAP PO SCH ×2 (09:00→17:00)
[2021-12-22] MEDS: CEFTRIAXONE 1 GM in SODIUM CHLORIDE 0.9% 50ML 50 ML IV SCH (10:13)
[2021-12-22] MEDS: INSULIN REGULAR, HUMAN 100 UNIT/1 ML SQ SCH ×3 (11:30→20:58)
[2021-12-22] MEDS ORDERED: SODIUM CHLORIDE 0.9% 250ML 250 ML IV ONE (13:45)
[2021-12-22] MEDS ORDERED: ROMIPLOSTIM 250 MCG SQ ONE (15:00)
[2021-12-22] MEDS: IMMUNE GLOBULIN IV SCH (15:19)
[2021-12-22] MEDS ORDERED: PHYTONADIONE 10 MG/ML AMP SQ ONE (16:30)
[2021-12-22] MEDS ORDERED: SODIUM CHLORIDE 0.9% 250ML 250 ML ONE (17:58)
[2021-12-23] VITALS (14 sets, daily range): BP systolic 85–111; BP diastolic 62–79
[2021-12-23] MEDS: FUROSEMIDE INJ 10 MG/ML 2 ML VIAL IV SCH (05:27)
[2021-12-23] MEDS: LEVOTHYROXINE SODIUM 50 MCG TAB PO SCH (05:27)
[2021-12-23] MEDS ORDERED: SODIUM CHLORIDE1 GM PO (06:33)
[2021-12-23] MEDS ORDERED: OMEPRAZOLE20 MG PO (06:33)
[2021-12-23] MEDS: INSULIN REGULAR, HUMAN 100 UNIT/1 ML SQ SCH (07:30)
[2021-12-23 07:34] LABS: BASOPHILS % 0.1 % (0.0-1.0); HEMATOCRIT 29.2 % (38.2-49.6); HEMOGLOBIN 9.9 g/dL (14.0-18.0); LYMPHOCYTES # (AUTO) 0.2 (1.0-3.2); LYMPHOCYTES % 1.3 % (18.0-39.1); MEAN CORPUSCULAR HEMOGLOBIN 29.5 pg (28-32); MEAN CORPUSCULAR HGB CONC 33.9 g/dL (31-35); MONOCYTES # (AUTO) 0.3 (0.2-0.8); MONOCYTES % 1.7 % (4.4-11.3); NEUTROPHILS # (AUTO) 15.8 (2.1-6.9); NEUTROPHILS % 96.1 % (38.7-80.0); RED BLOOD COUNT 3.36 x10e6/uL (4.3-5.7); RED CELL DISTRIBUTION WIDTH 20.3 % (11.7-14.4)
[2021-12-23 07:35] LABS: MEAN CORPUSCULAR VOLUME 86.9 fL (81-99); PLATELET COUNT 9 x10e3/uL (140-360)
[2021-12-23] MEDS: CEFTRIAXONE 1 GM in SODIUM CHLORIDE 0.9% 50ML 50 ML IV SCH (07:51)
[2021-12-23] MEDS: SODIUM CHLORIDE 1 GM TAB PO SCH (07:51)
[2021-12-23] MEDS: OMEPRAZOLE 20 MG CAP PO SCH (07:51)
[2021-12-23 07:56] LABS: ALBUMIN 1.2 g/dL (3.5-5.0); ALBUMIN/GLOBULIN RATIO 0.3 (0.8-2.0); ANION GAP 9.7 mmol/L (8-16); CALCIUM 7.2 mg/dL (8.4-10.2); CREATININE, SERUM 0.73 mg/dL (0.72-1.25); POTASSIUM 3.7 mmol/L (3.5-5.1)
[2021-12-23] MEDS ORDERED: BALSAM PERU/CASTOR OIL 60 GM OINT...G. TP SCH (09:00)
== END 2021-12-23 09:36 | disposition short-term general hospital (02) | DRG 813 ==
LOC: ER 12:28 → ERHOLD 14:24 → ICU 17:05
PROVIDERS: ADMIT Internal Medicine; ATTEND Internal Medicine
PROC: 30233R1 Transfusion of Nonautologous Platelets into Peripheral Vein, Percutaneous Approach (ICD-10-PCS; 2021-12-15)
PROC: 30233N1 Transfusion of Nonautologous Red Blood Cells into Peripheral Vein, Percutaneous Approach (ICD-10-PCS; 2021-12-16)
PROC: 02HV33Z Insertion of Infusion Device into Superior Vena Cava, Percutaneous Approach (ICD-10-PCS; principal; 2021-12-17)
DX: D69.3 Immune thrombocytopenic purpura (principal); E43 Unspecified severe protein-calorie malnutrition; C64.9 Malignant neoplasm of unspecified kidney, except renal pelvis; J90 Pleural effusion, not elsewhere classified; I82.3 Embolism and thrombosis of renal vein; C77.2 Secondary and unspecified malignant neoplasm of intra-abdominal lymph nodes; I10 Essential (primary) hypertension; E11.649 Type 2 diabetes mellitus with hypoglycemia without coma; E03.9 Hypothyroidism, unspecified; Z20.822 Contact with and (suspected) exposure to COVID-19; Z68.27 Body mass index [BMI] 27.0-27.9, adult
CPT/HCPCS: 36415; 36568; 36569; 70450; 71045; 71260; 74177; 76700; 80048; 80053; 80061; 81001; 82248; 82607; 82728; 82746; 82948; 83010; 83036; 83540; 83615; 84155; 84466; 84484; 85025; 85045; 85379; 85384; 85610; 85730; 86039; 86850; 86900; 86920; 87040; 87086; 93005; 93970; 94799; 96372; 97139; 99251; 99285; J0456; J0696; J1100; J1817; J1940; J2930; J3430; J7030; J7040; J7050; J7512; J7799; P9016; P9034; Q9967; U0002